=== PATIENT | male | born 2000 | race Caucasian/White ===

== ENCOUNTER 2021-01-20 04:05 | Emergency (ER) | payer OTHER ==
[~2021-01-20] VITALS: Ht 188 cm; Wt 68.2 kg
[2021-01-20] MEDS ORDERED: ALBUTEROL SULFATE HFA 90 MCG/PUFF 8 GM INHALER IH ONE (05:00)
[2021-01-20 06:13] VITALS: BP 126/67
== END 2021-01-20 06:54 | disposition home or self-care (01) ==
LOC: EMS 04:12
DX: J45.901 Unspecified asthma with (acute) exacerbation (principal); F17.200 Nicotine dependence, unspecified, uncomplicated; F12.90 Cannabis use, unspecified, uncomplicated; Z76.0 Encounter for issue of repeat prescription
CPT/HCPCS: 94640; 99283; J3535